=== PATIENT | male | born 2005 | race Hispanic/Latino ===

== ENCOUNTER 2025-05-18 15:45 | Emergency (ER) | payer OTHER ==
[~2025-05-18] VITALS: Ht 172.7 cm; Wt 68.7 kg
[2025-05-18 19:47] VITALS: BP 136/72; TEMP 98.3; O2SAT 98
[2025-05-18] MEDS ORDERED: IBUP600T42 PO (19:53)
== END 2025-05-18 20:01 | disposition home or self-care (01) ==
LOC: M ED 15:45
DX: M25.562 Pain in left knee (principal); Z79.1 Long term (current) use of non-steroidal anti-inflammatories (NSAID)